=== PATIENT | male | born 1955 | race Caucasian/White ===

== ENCOUNTER 2017-05-19 02:20 | Inpatient (IN) | payer OTHER ==
[2017-05-19] MEDS: IV NORMAL SALINE 1000ML BAG 1,000 ML IV ×3 (05:00→23:45)
[2017-05-19 06:32] LABS: ADD MAN DIFF? NO
[2017-05-19 06:38] LABS: BASO # 0.1 x10^3/uL (0.0-0.2); BASO % 1 % (0-3); EOS # 0.2 x10^3/uL (0.0-0.7); EOS % 3 % (0-3); HEMATOCRIT 31.5 % (39.0-53.0); HEMOGLOBIN 10.7 g/dL (13.0-17.5); LYMPH # 1.6 x10^3/uL (1.0-4.8); LYMPH % 23 % (24-48); MEAN CORPUSCULAR HEMOGLOBIN 30 pg (25-35); MEAN CORPUSCULAR HGB CONC 34 g/dL (31-37); MEAN CORPUSCULAR VOLUME 89 fL (79-100); MONO # 0.9 x10^3/uL (0.0-1.1); MONO % 14 % (0-9); NEUT % 60 % (31-73); PLATELET COUNT 206 x10^3/uL (140-400); RED BLOOD COUNT 3.55 x10^6/uL (4.30-5.70); RED CELL DISTRIBUTION WIDTH 13.3 % (11.5-14.5); WHITE BLOOD COUNT 6.7 x10^3/uL (4.0-11.0)
[2017-05-19 06:49] LABS: PROTHROMBIN TIME PATIENT 12.2 SEC (11.7-14.0)
[2017-05-19 07:01] LABS: ALBUMIN 2.9 g/dL (3.4-5.0); ALBUMIN/GLOBULIN RATIO 0.8 (1.0-1.7); ALK PHOS 44 U/L (46-116); ALT (SGPT) 38 U/L (16-63); ANION GAP 6 (6-14); AST (SGOT) 32 U/L (15-37); BLOOD UREA NITROGEN 31 mg/dL (8-26); BUN/CREATININE RATIO 19 (6-20); CALCIUM 9.3 mg/dL (8.5-10.1); CARBON DIOXIDE 27 mmol/L (21-32); CHLORIDE 105 mmol/L (98-107); CREATININE 1.6 mg/dL (0.7-1.3); GLUCOSE 144 mg/dL (70-99); MAGNESIUM 2.1 mg/dL (1.8-2.4); POTASSIUM 4.3 mmol/L (3.5-5.1); SODIUM 138 mmol/L (136-145); TOTAL BILIRUBIN 0.1 mg/dL (0.2-1.0); TOTAL PROTEIN 6.7 g/dL (6.4-8.2)
[2017-05-19 10:52] LABS: THYROID STIM HORMONE (TSH) 2.967 uIU/mL (0.358-3.74); VITAMIN-B12 1163 pg/mL (247-911)
[2017-05-19 11:41] LABS: CHOLESTEROL 281 mg/dL (0-200); HDLC 28 mg/dL (40-60); NON-HDL CHOLESTEROL 253 mg/dL (0-129); TRIGLYCERIDES 700 mg/dL (0-150); VLDLC 140 mg/dL (0-40)
[2017-05-19] MEDS ORDERED: hydrALAZINE 20 MG/ML VIAL. IVP (14:30)
[2017-05-19] MEDS: ASPIRIN 300 MG SUPP.RECT PR (14:30)
[2017-05-19 15:40] LABS: AMPHETAMINE/METHAMPHETAMINE NEG (NEG); BARBITURATES NEG (NEG); BENZODIAZEPINES NEG (NEG); CANNABINOIDS NEG (NEG); COCAINE NEG (NEG); ETHANOL, URINE NEG (NEG); METHADONE NEG (NEG); OPIATES NEG (NEG); PHENCYCLIDINE NEG (NEG)
[2017-05-19 16:19] LABS: MRSA BY PCR Negative (Negative)
[2017-05-19] MEDS ORDERED: ACETAMINOPHEN 500 MG TABLET PO (17:30)
[2017-05-19] MEDS ORDERED: ONDANSETRON PF 4 MG/2 ML VIAL. IV (17:30)
[2017-05-19] MEDS ORDERED: MORPHINE SULFATE 4 MG/ML DISP.SYRIN. IV (17:30)
[2017-05-19] MEDS: CLOPIDOGREL BISULFATE 75 MG TABLET PO (17:46)
[2017-05-19 20:51] LABS: POC GLUCOSE 247 mg/dL (70-99)
[2017-05-19] MEDS: ATORVASTATIN CALCIUM 40 MG TABLET. PO (21:12)
[2017-05-19] MEDS ORDERED: DEXTROSE 50% 25 GM / 50ML DISP.SYRIN. IV (21:15)
[2017-05-19] MEDS: INSULIN ASPART 300 UNITS/3 ML INSULN.PEN SQ (21:59)
[2017-05-20] MEDS: IV NORMAL SALINE 1000ML BAG 1,000 ML IV (05:53)
[2017-05-20 07:58] LABS: POC GLUCOSE 208 mg/dL (70-99)
[2017-05-20] MEDS: CLOPIDOGREL BISULFATE 75 MG TABLET PO (08:53)
[2017-05-20] MEDS: INSULIN ASPART 300 UNITS/3 ML INSULN.PEN SQ ×3 (08:58→17:00)
[2017-05-20 12:17] LABS: POC GLUCOSE 211 mg/dL (70-99)
[2017-05-20] MEDS: ASPIRIN CHEWABLE 81 MG TABLET. PO (13:19)
[2017-05-20] MEDS: FENOFIBRATE 54 MG TABLET. PO (16:00)
[2017-05-20] MEDS ORDERED: ATORVASTATIN CALCIUM 20 MG TABLET PO (21:00)
[2017-05-21] MEDS ORDERED: amLODIPine BESYLATE 5 MG TABLET PO (09:00)
== END 2017-05-20 17:00 | disposition home or self-care (01) | DRG 65 ==
LOC: 1 WEST ICU 02:20 → 6 SOUTH 19:10
PROVIDERS: Family Medicine
DX: I63.212 Cerebral infarction due to unspecified occlusion or stenosis of left vertebral artery (principal); N17.9 Acute kidney failure, unspecified; E11.42 Type 2 diabetes mellitus with diabetic polyneuropathy; E66.9 Obesity, unspecified; E78.5 Hyperlipidemia, unspecified; I10 Essential (primary) hypertension; J44.9 Chronic obstructive pulmonary disease, unspecified; Z79.02 Long term (current) use of antithrombotics/antiplatelets; Z82.49 Family history of ischemic heart disease and other diseases of the circulatory system; Z83.3 Family history of diabetes mellitus; Z86.73 Personal history of transient ischemic attack (TIA), and cerebral infarction without residual deficits; Z87.891 Personal history of nicotine dependence; Z88.0 Allergy status to penicillin; I25.10 Atherosclerotic heart disease of native coronary artery without angina pectoris; R26.9 Unspecified abnormalities of gait and mobility; M19.90 Unspecified osteoarthritis, unspecified site; Z68.35 Body mass index [BMI] 35.0-35.9, adult; R42 Dizziness and giddiness
CPT/HCPCS: 36415; 70551; 80053; 80061; 80307; 82607; 82962; 83735; 84443; 85025; 85610; 87641; 93306; C8929; J1815; J7030

== ENCOUNTER 2017-05-27 18:03 | Inpatient (IN) | payer OTHER ==
[2017-05-27 18:20] LABS: POC GLUCOSE 146 mg/dL (70-99)
[2017-05-27] MEDS ORDERED: ONDANSETRON PF 4 MG/2 ML VIAL. IV ×2 (18:30→21:00)
[2017-05-27 18:35] LABS: ADD MAN DIFF? NO
[2017-05-27 18:38] LABS: BASO # 0.1 x10^3/uL (0.0-0.2); BASO % 1 % (0-3); EOS # 0.3 x10^3/uL (0.0-0.7); EOS % 4 % (0-3); HEMATOCRIT 32.8 % (39.0-53.0); HEMOGLOBIN 11.1 g/dL (13.0-17.5); LYMPH # 1.7 x10^3/uL (1.0-4.8); LYMPH % 21 % (24-48); MEAN CORPUSCULAR HEMOGLOBIN 30 pg (25-35); MEAN CORPUSCULAR HGB CONC 34 g/dL (31-37); MEAN CORPUSCULAR VOLUME 89 fL (79-100); MONO # 1.1 x10^3/uL (0.0-1.1); MONO % 14 % (0-9); NEUT # 4.7 x10^3uL (1.8-7.7); NEUT % 60 % (31-73); PLATELET COUNT 275 x10^3/uL (140-400); RED BLOOD COUNT 3.69 x10^6/uL (4.30-5.70); RED CELL DISTRIBUTION WIDTH 13.6 % (11.5-14.5); WHITE BLOOD COUNT 7.8 x10^3/uL (4.0-11.0)
[2017-05-27 18:49] LABS: PARTIAL THROMBOPLASTIN TIME 34 SEC (24-38)
[2017-05-27 18:53] LABS: ANION GAP 15 (6-14); BLOOD UREA NITROGEN 36 mg/dL (8-26); BUN/CREATININE RATIO 19 (6-20); CALCIUM 10.4 mg/dL (8.5-10.1); CARBON DIOXIDE 21 mmol/L (21-32); CHLORIDE 103 mmol/L (98-107); CREATININE 1.9 mg/dL (0.7-1.3); GFR 36.1; GLUCOSE 150 mg/dL (70-99); SODIUM 139 mmol/L (136-145)
[2017-05-27 18:59] LABS: ALBUMIN 3.3 g/dL (3.4-5.0); ALBUMIN/GLOBULIN RATIO 0.7 (1.0-1.7); ALK PHOS 50 U/L (46-116); ALT (SGPT) 34 U/L (16-63); AST (SGOT) 29 U/L (15-37); MAGNESIUM 2.1 mg/dL (1.8-2.4); TOTAL BILIRUBIN 0.2 mg/dL (0.2-1.0); TOTAL PROTEIN 8.1 g/dL (6.4-8.2)
[2017-05-27 19:03] LABS: TROPONINI < 0.017 ng/mL (0.000-0.055)
[2017-05-27 19:04] LABS: NT-PRO BNP 707 pg/mL (0-124)
[2017-05-27] MEDS ORDERED: ACETAMINOPHEN 500 MG TABLET PO (21:00)
[2017-05-27] MEDS ORDERED: DEXTROSE 50% 25 GM / 50ML DISP.SYRIN. IV (21:00)
[2017-05-27] MEDS ORDERED: HYDROcodone/APAP 5/325MG 1 TAB TABLET PO (21:00)
[2017-05-27] MEDS: ATORVASTATIN CALCIUM 40 MG TABLET. PO (22:03)
[2017-05-27] MEDS: PREGABALIN 50 MG CAPSULE PO (22:03)
[2017-05-28 05:48] LABS: ADD MAN DIFF? NO
[2017-05-28 05:52] LABS: BASO # 0.1 x10^3/uL (0.0-0.2); BASO % 2 % (0-3); EOS # 0.3 x10^3/uL (0.0-0.7); EOS % 5 % (0-3); HEMATOCRIT 30.6 % (39.0-53.0); HEMOGLOBIN 10.3 g/dL (13.0-17.5); LYMPH # 1.5 x10^3/uL (1.0-4.8); LYMPH % 25 % (24-48); MEAN CORPUSCULAR HEMOGLOBIN 30 pg (25-35); MEAN CORPUSCULAR HGB CONC 34 g/dL (31-37); MEAN CORPUSCULAR VOLUME 89 fL (79-100); MONO % 17 % (0-9); NEUT # 3.1 x10^3uL (1.8-7.7); NEUT % 52 % (31-73); PLATELET COUNT 246 x10^3/uL (140-400); RED BLOOD COUNT 3.43 x10^6/uL (4.30-5.70); RED CELL DISTRIBUTION WIDTH 13.7 % (11.5-14.5)
[2017-05-28 06:12] LABS: ANION GAP 8 (6-14); BLOOD UREA NITROGEN 35 mg/dL (8-26); CALCIUM 9.8 mg/dL (8.5-10.1); CARBON DIOXIDE 26 mmol/L (21-32); CHLORIDE 105 mmol/L (98-107); CREATININE 1.9 mg/dL (0.7-1.3); GFR 36.1; GLUCOSE 118 mg/dL (70-99); POTASSIUM 4.3 mmol/L (3.5-5.1); SODIUM 139 mmol/L (136-145)
[2017-05-28] MEDS: INSULIN ASPART 300 UNITS/3 ML INSULN.PEN SQ ×3 (08:00→17:00)
[2017-05-28 08:15] LABS: POC GLUCOSE 108 mg/dL (70-99)
[2017-05-28] MEDS: ASPIRIN ENTERIC COATED 325 MG TABLET.DR. PO (09:03)
[2017-05-28] MEDS: LOSARTAN POTASSIUM 25 MG TABLET. PO (09:04)
[2017-05-28] MEDS: PREGABALIN 50 MG CAPSULE PO ×3 (09:04→20:41)
[2017-05-28] MEDS: CLOPIDOGREL BISULFATE 75 MG TABLET PO (09:05)
[2017-05-28] MEDS ORDERED: LABETALOL 20 MG/4 ML DISP.SYRIN. IVP (11:45)
[2017-05-28] MEDS ORDERED: ACETAMINOPHEN 650 MG SUPP.RECT. PR (11:45)
[2017-05-28] MEDS ORDERED: ACETAMINOPHEN 325 MG TABLET. PO (11:45)
[2017-05-28] MEDS: IV NORMAL SALINE 1000ML BAG 1,000 ML IV ×2 (12:01→21:32)
[2017-05-28] MEDS: ENOXAPARIN 40 MG/0.4 ML SYRINGE. SQ (12:02)
[2017-05-28 12:20] LABS: POC GLUCOSE 132 mg/dL (70-99)
[2017-05-28 16:50] LABS: POC GLUCOSE 117 mg/dL (70-99)
[2017-05-28] MEDS: ATORVASTATIN CALCIUM 40 MG TABLET. PO (21:00)
[2017-05-28 21:05] LABS: POC GLUCOSE 100 mg/dL (70-99)
[2017-05-29 06:18] LABS: POC GLUCOSE 105 mg/dL (70-99)
[2017-05-29] MEDS: INSULIN ASPART 300 UNITS/3 ML INSULN.PEN SQ ×3 (08:00→17:01)
[2017-05-29] MEDS: ASPIRIN 300 MG SUPP.RECT PR ×2 (08:30→08:32)
[2017-05-29] MEDS: IV NORMAL SALINE 1000ML BAG 1,000 ML IV (08:31)
[2017-05-29] MEDS: CLOPIDOGREL BISULFATE 75 MG TABLET PO (08:32)
[2017-05-29] MEDS: PREGABALIN 50 MG CAPSULE PO ×3 (08:32→20:59)
[2017-05-29] MEDS: LOSARTAN POTASSIUM 25 MG TABLET. PO (08:32)
[2017-05-29] MEDS: BARIUM SULFATE 40% (APPLE) 148 GM PWD. PO (10:10)
[2017-05-29] MEDS: ENOXAPARIN 40 MG/0.4 ML SYRINGE. SQ (11:07)
[2017-05-29] MEDS ORDERED: hydrALAZINE 20 MG/ML VIAL. IVP (11:15)
[2017-05-29] MEDS: ASPIRIN 325 MG TABLET PO (12:12)
[2017-05-29 17:02] LABS: POC GLUCOSE 172 mg/dL (70-99)
[2017-05-29] MEDS: ATORVASTATIN CALCIUM 40 MG TABLET. PO (20:59)
[2017-05-30 07:23] LABS: POC GLUCOSE 180 mg/dL (70-99)
[2017-05-30] MEDS ORDERED: CLOPIDOGREL BISULFATE 75 MG TABLET PO (08:00)
[2017-05-30] MEDS: LOSARTAN POTASSIUM 25 MG TABLET. PO (08:08)
[2017-05-30] MEDS: ASPIRIN 325 MG TABLET PO (08:08)
[2017-05-30] MEDS: CLOPIDOGREL BISULFATE 75 MG TABLET PO (08:08)
[2017-05-30] MEDS: PREGABALIN 50 MG CAPSULE PO ×2 (08:08→12:01)
[2017-05-30] MEDS: INSULIN ASPART 300 UNITS/3 ML INSULN.PEN SQ ×2 (08:11→12:04)
[2017-05-30] MEDS: ENOXAPARIN 40 MG/0.4 ML SYRINGE. SQ (08:11)
[2017-05-30 12:11] LABS: POC GLUCOSE 188 mg/dL (70-99)
[2017-05-30 13:48] LABS: POC GLUCOSE 221 mg/dL (70-99)
== END 2017-05-30 12:55 | disposition home health service (06) | DRG 64 ==
LOC: ER 18:03 → 6 SOUTH 19:25
PROVIDERS: Internal Medicine
DX: I63.9 Cerebral infarction, unspecified (principal); G93.6 Cerebral edema; E11.51 Type 2 diabetes mellitus with diabetic peripheral angiopathy without gangrene; R13.10 Dysphagia, unspecified; E78.00 Pure hypercholesterolemia, unspecified; E78.5 Hyperlipidemia, unspecified; I10 Essential (primary) hypertension; I65.02 Occlusion and stenosis of left vertebral artery; J44.9 Chronic obstructive pulmonary disease, unspecified; N28.9 Disorder of kidney and ureter, unspecified; Z79.02 Long term (current) use of antithrombotics/antiplatelets; Z79.82 Long term (current) use of aspirin; Z82.3 Family history of stroke; Z82.49 Family history of ischemic heart disease and other diseases of the circulatory system; Z83.3 Family history of diabetes mellitus; M19.90 Unspecified osteoarthritis, unspecified site; Z88.0 Allergy status to penicillin; Z91.018 Allergy to other foods
CPT/HCPCS: 36415; 70450; 70551; 74230; 80048; 80053; 82962; 83735; 83880; 84484; 85025; 85610; 85730; 92526-GN; 92610-GN; 92611-GN; 93005; 93880; 97112-GO; 97116-GP; 97162-GP; 97166-GO; 97530-GP; 97535-GO; 99285; 99285-25; J1650; J1815; J7030